=== PATIENT | female | born 1960 | race Caucasian/White ===

== ENCOUNTER → 2020-09-12 14:18 | Outpatient (CLI) | payer OTHER, SELFPAY ==
--- NOTE | ~2020-09-12 | XR_ITS ---
EXAMINATION: XR knee LT min 4V DATE: 09/12/2020 14:40 INDICATION: Left knee pain. TECHNIQUE: 4 views of left knee were obtained. COMPARISON: None. FINDINGS: Bone alignment is normal. No fracture. There is mild osteoarthritis of medial compartment. No knee joint effusion. IMPRESSION: 1. Mild left knee osteoarthritis. Reviewed, dictated and finalized at location A. PATROLMAN
== END ==
PROVIDERS: Visit Provider Chiropractor
DX: M17.12 Unilateral primary osteoarthritis, left knee (principal)
CPT/HCPCS: 73564

== ENCOUNTER → 2023-06-17 15:26 | Outpatient (CLI) | payer OTHER, SELFPAY ==
--- NOTE | ~2023-06-17 | XR_ITS ---
XR hip BI wo pelvis DATE: 06/17/2023 16:04 INDICATION: Hip pain TECHNIQUE: Lateral and standing AP views of left and right hips COMPARISON: None FINDINGS: Normal alignment at the pubic symphysis and sacroiliac joints. Hip joint spaces appear symm etric and relatively well preserved. No fracture or dislocation, avascular necrosis or bone destruction of either hip is detected. IMPRESSION: No significant abnormality Reviewed, dictated and finalized at location A. IMPRESSION: No significant abnormality
--- NOTE | ~2023-06-17 | XR_ITS ---
XR lumbar spine min 4V DATE: 06/17/2023 16:04 INDICATION: Back pain TECHNIQUE: Standing AP, lateral, bilateral oblique and coned lateral lumbosacral views COMPARISON: None FINDINGS: There is diffuse osteopenia. There is mild levoscoliosis of the lumbar spine. There is degenerative change at the apophyseal joints particularly at L4-5 and L5-S1 with associated grade 1 anterolisthesis at L4-5. No fracture or bone destruction or spondylolisthesis is detected. Included lower thoracic and lumbar pedicles are intact. There is minimal degenerative spurring of the lumbar spine. Minimal loss of height at L4-5 interspace . Lumbar and lumbosacral interspaces are otherwise relatively well preserved. IMPRESSION: Mild levoscoliosis Osteopenia Degenerative changes of apophyseal joints with associated grade 1 listhesis at L4-5 Reviewed, dictated and finalized at location A.
== END ==
PROVIDERS: PCP Chiropractor; Visit Provider Chiropractor
DX: M25.559 Pain in unspecified hip (principal); M85.88 Other specified disorders of bone density and structure, other site
CPT/HCPCS: 72110; 73521